=== PATIENT | male | born 1980 | race African-American/Black ===

== ENCOUNTER 2018-06-28 10:49 | Emergency (ER) | payer OTHER ==
[2018-06-28 10:58] VITALS: BP 130/82; PULSE 64; TEMP 98; BMI 25.0
--- NOTE | 2018-06-28 12:01 | PDOC ---
History of Present Illness - General Chief Complaint: Pain Stated Complaint: Toothache Time Seen by Provider: 06/28/18 11:53 History Source: Patient Exam Limitations: No Limitations - History of Present Illness Initial Comments: 06/28/18 12:07 Patient came for evaluation of swelling and fractures of multiple teeth however upper right molar is swollen and becoming more painful. Patient has known dental issues and attempted to find a dentist this morning and yesterday but was unsuccessful. States has some swelling to his lymph nodes and is under his jaw but no fever. 06/28/18 12:10 Timing/Duration: unsure Severity: moderate Associated Symptoms: denies: fever/chills Past History - Travel Traveled outside of the country in the last 30 days: No Close contact w/someone who was outside of country & ill: No - Past Medical History Allergies/Adverse Reactions: Allergies Allergy/AdvReac Type Severity Reaction Status Date / Time No Known Allergies Allergy Verified 06/28/18 10:52 Home Medications: Ambulatory Orders Amox-Tr/K Cl [Augmentin 875Mg Tablet] 1 tab PO BID #20 tablet 06/28/18 Naproxen [Naprosyn -] 500 mg PO BID #30 tablet 06/28/18 Asthma: Yes COPD: No - Suicide/Smoking/Psychosocial Hx Smoking History: Never smoked Information on smoking cessation initiated: No Hx Alcohol Use: No Drug/Substance Use Hx: Yes (JACKIE) Substance Use Type: None Review of Systems - Review of Systems Able to Perform ROS?: Yes Is the patient limited [place]ian proficient: Yes Constitutional: Yes: Symptoms Reported, See HPI, Malaise. No: Fever HEENTM: Yes: Symptoms Reported, See HPI, Mouth Pain, Dental Problems, Difficulty Swallowing, Mouth Swelling Respiratory: No: Symptoms reported Musculoskeletal: No: Symptoms Reported Integumentary: Yes: Symptoms Reported All Other Systems: Reviewed and Negative *Physical Exam - Vital Signs Last Vital Signs Temp Pulse Resp BP Pulse Ox 98.0 F 64 18 130/82 100 06/28/18 10:55 06/28/18 10:55 06/28/18 10:55 06/28/18 10:55 06/28/18 10:55 - Physical Exam General Appearance: Yes: Nourished, Appropriately Dressed, Apparent Distress, Moderate Distress HEENT: positive: JAIRO, TMs Normal, Pharynx Normal, Other (multiple decayed teeth down to digital surface with right upper molar with some fluctuant but draining of tooth decayed to gingival surface. Has some tender lymphadenopathy.) . negative: Normal ENT Inspection Neck: positive: Tender, Supple, Lymphadenopathy (R), Lymphadenopathy (L) Respiratory/Chest: positive: Lungs Clear Gastrointestinal/Abdominal: positive: Soft Integumentary: positive: Dry, Warm, Pale Neurologic: positive: specialist physician II-XII NML intact, Fully Oriented, Alert, Normal Mood/ Affect, Normal Response, Motor Strength 5 *DC/Admit/Observation/Transfer Diagnosis at time of Disposition: Abscess, dental - Discharge Dispostion Disposition: HOME Condition at time of disposition: Stable Decision to Admit order: No - Referrals Referrals: Aryan Jennings MD [Primary Care Provider] - - Patient Instructions Printed Discharge Instructions: DI for Tooth Decay Additional Instructions: Rest, drink lots of fluids: Teas, water, soups Saltwater gargles/ keep mouth clean and rinse after each meal May use wet teabag for pain relief to area Avoid hard chewing foods, stick to ice cream, Jell-O, yogurt etc. Tylenol or Motrin for fever and pain Complete all medication as prescribed Seek dental appointment as soon as possible for evaluation of dental injury/pain Followup with private physician in one to 2 days as needed Return to emergency department for worsened symptoms, fevers, swelling to face or worsened pain [facility] [address] [place] [address] - Post Discharge Activity
[2018-06-28] MEDS ORDERED: KETOROLAC TROMETHAMINE 60 MG/2 ML VIAL IM ONE (12:02)
[2018-06-28] MEDS ORDERED: AMOX TR/POT CLAV 875MG/125MG TABLETS (FP) PO ONE (12:02)
[2018-06-28] MEDS ORDERED: KETOROLAC TROMETHAMINE 60 MG/2 ML VIAL ONE (12:05)
[2018-06-28] MEDS ORDERED: AMOX TR/POT CLAV 875MG/125MG TABLETS (FP) ONE (12:05)
== END 2018-06-28 12:15 | disposition home or self-care (01) ==
LOC: JERFT 10:49
PROC: 3E0233Z Introduction of Anti-inflammatory into Muscle, Percutaneous Approach (ICD-10-PCS; principal; 2018-06-28)
DX: K04.7 Periapical abscess without sinus (principal); Z87.09 Personal history of other diseases of the respiratory system
CPT/HCPCS: 96372; 99281-25

== ENCOUNTER 2022-03-10 15:35 | Emergency (ER) | payer OTHER ==
[2022-03-10 15:48] VITALS: BP 138/80; PULSE 69; TEMP 98; BMI 27.4
[2022-03-10] MEDS ORDERED: KETOROLAC TROMETHAMINE 30 MG/1 ML VIAL IM ONE (16:54)
[2022-03-10] MEDS ORDERED: KETOROLAC TROMETHAMINE 30 MG/1 ML VIAL ONE (16:57)
== END 2022-03-10 18:43 | disposition home or self-care (01) ==
LOC: JERFT 15:35
PROC: 3E0233Z Introduction of Anti-inflammatory into Muscle, Percutaneous Approach (ICD-10-PCS; principal; 2022-03-10)
DX: M25.521 Pain in right elbow (principal)
CPT/HCPCS: 73070-TC-RT-FY; 73090-TC-RT-FY; 73110-TC-RT-FY; 73130-TC-RT-FY; 99284-25